=== PATIENT | female | born 1985 | race Caucasian/White ===

== ENCOUNTER 2018-12-04 17:28 | Emergency (ER) | payer OTHER, SELFPAY ==
[2018-12-04 17:32] VITALS: BP 133/88; PULSE 112; RESP 22; TEMP 36.7; O2SAT 96
[2018-12-04 17:47] VITALS: PULSE 113; RESP 18; O2SAT 98
[2018-12-04] MEDS: ALBUTEROL/IPRATROPIUM 3 ML AMPUL INH (17:47)
--- NOTE | 2018-12-04 18:22 | ED.SOB ---
HPI - SOB/Dyspnea General Chief Complaint: Shortness of Breath/Dyspnea Stated Complaint: SOB Time Seen by Provider: 12/04/18 18:22 Source: patient Mode of arrival: ambulatory Limitations: no limitations History of Present Illness Patient is a 33-year-old female with a history of asthma. Never been intubated before never been hospitalized before. Does have Symbicort that she supposed be using on a daily basis however she states she only rarely uses it. She states that today is the 3rd day of worsening shortness of breath. She does not have a nebulizer at home. She has been using her albuterol. No fevers. No change in sputum production. Does have sinus congestion another upper respiratory infection like symptoms. Related Data Home Medications Medication Instructions Recorded Confirmed bupropion HCl 12/04/18 sertraline 100 mg PO DAILY 12/04/18 12/04/18 Previous Rx's Medication Instructions Recorded dexamethasone [Decadron] 12 mg PO .Once #3 tab 12/04/18 Allergies Allergy/AdvReac Type Severity Reaction Status Date / Time Sulfa (Sulfonamide Allergy Verified 12/04/18 17:35 Antibiotics) Review of Systems Constitutional Denies fever(s) Cardiovascular Denies chest pain and Reports dyspnea Respiratory Reports chest congestion, Reports cough, Denies excessive phlegm production, Denies pain on inspiration, Reports dyspnea and Reports wheezing Gastrointestinal Gastrointestinal: Denies abdominal pain, Denies nausea and Denies vomiting Musculoskeletal Denies myalgias and Denies arthralgias Integumentary/Breasts Denies rash Hematologic/Lymphatic Comments: Not on anticoagulation Allergic/Immunologic Reports wheezing Exam Initial Vital Signs Initial Vital Signs: Vital Signs Temperature 98.0 F 12/04/18 17:32 Pulse Rate 112 H 12/04/18 17:32 Respiratory Rate 22 12/04/18 17:32 Blood Pressure 133/88 12/04/18 17:32 Pulse Oximetry 96 12/04/18 17:32 Const General: cooperative, healthy appearing, comfortable, well developed, well groomed and No acute distress Orientation: alert, awake and oriented x3 HENMT Head: normal to inspection and normocephalic Resp Effort & Inspection: normal respiratory effort, no grunting, not labored, no retractions and not tachypneic Auscultation: wheezes expiratory wheezes Cardio Rate: tachycardic Rhythm: regular rhythm Skin Lesions: no lesions Rashes: no rashes Neuro General: alert, awake and oriented x3 Extrem General: normal to inspection and capillary refill normal Psych Appearance: grossly normal and well kempt Course Orders Ordered: ED Orders 12/04/18 17:37 EKG-12 Lead Stat Discontinued Medications Albuterol/Ipratropium (Duoneb) 3 ml INH NOW ONE Stop: 12/04/18 17:47 Last Admin: 12/04/18 17:47 Dose: 3 ml Dexamethasone (Decadron) 10 mg PO NOW ONE Stop: 12/04/18 19:02 Last Admin: 12/04/18 19:14 Dose: 10 mg Vital Signs - 8 hr 12/04/18 17:32 12/04/18 17:47 12/04/18 19:29 Temperature 98.0 F Pulse Rate 112 H 113 H 95 H Respiratory Rate 22 18 19 Blood Pressure 133/88 131/88 Pulse Oximetry 96 98 96 MDM - SOB/Dyspnea MDM Narrative Medical decision making narrative: Patient received nebulizer treatment prior to my evaluation and she states she feels much better she did have bilateral expiratory wheezes. She was given a dose of Decadron here in the emergency department. Will hold on a chest x-ray for now. She is afebrile. Does have other upper respiratory infection like symptoms. I offered her another nebulizer since she was still wheezing however she states she feels much better and would just rather go home. She was given return precautions. Will send home with another prescription for Decadron. She expressed understanding and agreement this plan. Discharge Plan Departure Patient Disposition: Home Clinical Impression: Asthma with exacerbation Discharge Date/Time: 12/04/18 19:30 Interventions: ED Discharge Assessment Last Done: 12/04/18 19:29 Instructions: Asthma -- Adult Activity Restrictions/Additional Instructions: Recommend that you take your inhalers as directed. Take the steroids on Wednesday morning like we discussed. Return to the emergency department for any new or worsening symptoms. Call your primary care doctor for a follow-up Prescriptions: New dexamethasone [Decadron] 4 mg tablet 12 mg PO .Once Qty: 3 RF: 0 No Action sertraline 100 mg Tablet 100 mg PO DAILY RF: 0 bupropion HCl RF: 0
[2018-12-04] MEDS: DEXAMETHASONE 10 MG/ML VIAL PO (19:14)
[2018-12-04 19:29] VITALS: BP 131/88; PULSE 95; RESP 19; O2SAT 96
== END 2018-12-04 19:30 | disposition home or self-care (01) ==
PROVIDERS: Emergency Provider Emergency Medicine
DX: J45.909 Unspecified asthma, uncomplicated (principal)
CPT/HCPCS: 93005; 93010; 94150; 94640; 99282; 99283; J1100